=== PATIENT | female | born 1985 | race Caucasian/White ===

== ENCOUNTER 2019-05-30 15:23 | Outpatient (CLI) | payer MEDICAID | END 2019-05-30 23:59 | disposition home or self-care (01) | LOC: RAD 15:23 | PROVIDERS: ATTEND Chiropractor | DX: S23.3XXA Sprain of ligaments of thoracic spine, initial encounter (principal); S33.5XXA Sprain of ligaments of lumbar spine, initial encounter; S33.8XXA Sprain of other parts of lumbar spine and pelvis, initial encounter; S83.92XA Sprain of unspecified site of left knee, initial encounter; X58.XXXA Exposure to other specified factors, initial encounter; Y93.89 Activity, other specified; Y92.89 Other specified places as the place of occurrence of the external cause; Y99.8 Other external cause status; Z98.890 Other specified postprocedural states | CPT/HCPCS: 72072; 72100; 72170 ==